=== PATIENT | male | born 1970 ===

== ENCOUNTER 2019-07-21 13:30 | Emergency (ER) | payer SELFPAY ==
--- NOTE | 2019-07-21 14:11 | Event Note ---
ED Screening Note Date of service: 07/21/19 Time: 14:12 ED Screening Note: 49 yo w/ HTN presents to ED w/ dizziness, nausea and vomiting. Pt reports sudden onset of dizziness while driving at 12 noon. Pt states he is unable to walk because he feels as if he will fall. Denies extremity weakness or numbness. Pt moving all extremities, no facial droop. Pt is nepali-speaking. Brother accompanying pt, translating for him. States pt's speech is clear, does not sound slurred. Pt hypertensive. BPV vs CVA. Stroke alert called. This initial assessment/diagnostic orders/clinical plan/treatment(s) is/are subject to change based on patients health status, clinical progression and re-assessment by fellow clinical providers in the ED. Further treatment and workup at subsequent clinical providers discretion. Patient/guardian urged not to elope from the ED as their condition may be serious if not clinically assessed and managed. Initial orders include: Stroke alert CT Head labs
[2019-07-21] MEDS ORDERED: ONDANSETRON 4 MG/2 ML INJ ONE (14:27)
[2019-07-21] MEDS ORDERED: ONDANSETRON 4 MG/2 ML INJ IV ONE ×2 (14:31→19:51)
[2019-07-21] MEDS ORDERED: MECLIZINE 25 MG TAB PO ONE (14:31)
--- NOTE | 2019-07-21 14:44 | Cat Scan Report ---
NONENHANCED CT SCAN OF THE BRAIN: INDICATION: MAIN: CODE STROKE dizziness, hypertensive #[id number]. TECHNIQUE: Routine CT head without contrast. Sagittal and coronal reformatted images were obtained. A ll CT scans at this location are performed using CT dose reduction for ALARA by means of automated ex posure control. COMPARISON: None. FINDINGS: BRAIN / INTRACRANIAL CONTENTS: Hemorrhage:No intracranial hemorrhage; no subarachnoid hemorrhage Stroke mimics: No subdural or epidural hematoma or space taking lesion Acute/subacute territorial infarction: Arias-white matter interface: No blurring; normal Insular cortex: Normal Basal ganglia: Normal Wedge shaped parenchymal low density area: Not present Cortical sulci: Not effaced Lacunar infarctions: Low attenuation areas seen in the right putamen. Though it is difficult to deter mine the age, this appears to be chronic. Vasculopathy: Generally increased CT density of the blood vessels seen symmetrically bilaterally in the internal ca rotid arteries, middle cerebral arteries and anterior cerebral arteries and basilar artery. I do not see findings to suggest vasculopathy. Calcified embolus: Not present ASPECT score: Not applicable Chronic lesions: Subcutaneous low attenuation areas are seen in the right collins radiata. Probably th kathryn are due to chronic microvascular angiopathic changes. Adjacent cortical sulci are normal. White matter: Craniocervical junction:No significant abnormality Orbits:No significant abnormality Paranasal sinuses/mastoids:No significant abnormality Additional findings: None IMPRESSION: No acute subacute infarction This exam was performed as part of a code stroke protocol. The exam was completed at [facility] on 07/21/2019 1:30 PM. The exam was reviewed at 1:35 PM Central standard time and ER m edical staff was notified at 1:39 PM Central standard time. Signer Name: Yamilka Galaviz MD Signed: 07/21/2019 2:40 PM Workstation Name: [id number]
[2019-07-21 14:48] LABS: Basophils # (Auto) 0.1 K/mm3 (0.0-0.1); Basophils % (Auto) 0.3 % (0.0-1.8); Eosinophils % (Auto) 0.2 % (0.0-4.3); Lymphocytes # (Auto) 1.6 K/mm3 (1.2-5.4); Lymphocytes % (Auto) 10.1 % (13.4-35.0); Mean Corpuscular HGB Conc 36 % (32-34); Mean Corpuscular Volume 81 fl (84-94); Monocytes # (Auto) 0.6 K/mm3 (0.0-0.8); Monocytes % (Auto) 3.9 % (0.0-7.3); Platelet Count 203 K/mm3 (140-440); Red Blood Count 5.43 M/mm3 (3.65-5.03); Red Cell Distribution Width 12.8 % (13.2-15.2)
[2019-07-21 14:50] LABS: Hematocrit 44.2 % (35.5-45.6); Hemoglobin 15.8 gm/dl (11.8-15.2)
[2019-07-21 14:59] LABS: INR 1.01 (0.87-1.13)
[2019-07-21 15:00] LABS: Partial Thromboplastin Time 23.8 Sec. (24.2-36.6); Thrombin Time 15.1 Sec. (15.1-19.6)
[2019-07-21 15:02] LABS: Creatine Kinase MB 2.5 ng/mL (0.0-4.0)
[2019-07-21 15:03] LABS: BUN/Creatinine Ratio 28; Blood Urea Nitrogen 17 mg/dL (9-20); Calcium 9.2 mg/dL (8.4-10.2); Hemolysis Index 13
[2019-07-21] MEDS ORDERED: SODIUM CHLORIDE 0.9% 1000 ML 1,000 ML IV ONE ×2 (15:07→17:30)
--- NOTE | 2019-07-21 15:19 | Emergency Department Report ---
ED Dizziness HPI - General Chief Complaint: Weakness Stated Complaint: VOMITING/NAUSEA Time Seen by Provider: 07/21/19 14:23 Source: patient Mode of arrival: Wheelchair Limitations: No Limitations - History of Present Illness Initial Comments: 49-year-old male with a past medical history hypertension and elevated cholesterol presents to the hospital complaining of sudden onset of dizziness while driving at noon. Patient describes it as a spinning sensation with associated nausea and vomiting. Patient prefers having his eyes closed because symptoms are worse with eyes open. He has difficulty walking because he felt like he is going to fall. He denies focal weakness, focal numbness, headache, neck pain, chest pain, or shortness of breath. Patient takes lovastatin, amlodipine, losartan, and hydrochlorothiazide has been compliant with his med ications. - Related Data Previous Rx's Medication Instructions Recorded Last Taken Type Meclizine [Antivert] 12.5 mg PO QID PRN #15 tablet 07/21/19 Unknown Rx Ondansetron [Zofran Odt] 4 mg PO Q8HR #12 tab.rapdis 07/21/19 Unknown Rx Prednisone [predniSONE (Sarah) ER 5 mg PO QDAY #5 tablet. 07/21/19 Unknown Rx TAB] Allergies Allergy/AdvReac Type Severity Reaction Status Date / Time No Known Allergies Allergy Verified 07/21/19 13:35 ED Review of Systems ROS: Stated complaint: VOMITING/NAUSEA Other details as noted in HPI Comment: All other systems reviewed and negative ED Past Medical Hx - Past Medical History Previous Medical History?: Yes Hx Hypertension: Yes - Surgical History Past Surgical History?: No - Social History Smoking Status: Never Smoker Substance Use Type: None - Medications Home Medications: Home Medications Medication Instructions Recorded Confirmed Last Taken Type Meclizine [Antivert] 12.5 mg PO QID PRN #15 tablet 07/21/19 Unknown Rx Ondansetron [Zofran Odt] 4 mg PO Q8HR #12 tab.rapdis 07/21/19 Unknown Rx Prednisone [predniSONE (Sarah) ER 5 mg PO QDAY #5 tablet. 07/21/19 Unknown Rx TAB] ED Physical Exam - General Limitations: No Limitations - Other Other exam information: General: No limitations, patient is alert in no acute distress Head exam: Atraumatic, normocephalic Eyes exam: Normal appearance, significant lateral nystagmus with right gaze, pupils equal and reactive to light ENT: Moist mucous membrane Neck exam: Normal inspection, full range of motion Respiratory exam: Clear to auscultation bilateral, no wheezes, rales, crackles Cardiovascular: Normal rate and rhythm Abdomen: Soft, nondistended, and nontender, with normal bowel sounds, no rebound, or guarding, Extremity: No deformity Back: Normal Inspection, no CVA tenderness Neurologic: Alert, oriented x3, speech clear, no gross motor or sensory deficit, [id number]-swal-ciffes function intact. NIH stroke scale of 0 as per neurologist exam Psychiatric: Normal mood, affect Skin: No rash ED Course Vital Signs 07/21/19 07/21/19 07/21/19 14:02 14:30 15:16 Temperature 97.3 F L Pulse Rate 69 85 Respiratory 16 20 16 Rate Blood Pressure 185/110 Blood Pressure 185/110 166/95 [Left] O2 Sat by Pulse 96 100 Oximetry 07/21/19 07/21/19 07/21/19 15:45 16:01 16:15 Temperature Pulse Rate 71 66 63 Respiratory 16 14 14 Rate Blood Pressure 138/87 148/93 149/97 Blood Pressure [Left] O2 Sat by Pulse 99 90 98 Oximetry 07/21/19 07/21/19 07/21/19 16:30 16:45 17:00 Temperature Pulse Rate 64 64 65 Respiratory 12 15 15 Rate Blood Pressure 152/97 145/94 147/99 Blood Pressure [Left] O2 Sat by Pulse 100 98 97 Oximetry 07/21/19 07/21/19 07/21/19 17:15 17:31 17:45 Temperature Pulse Rate 63 66 65 Respiratory 13 10 L 17 Rate Blood Pressure 155/103 158/98 158/97 Blood Pressure [Left] O2 Sat by Pulse 99 97 99 Oximetry 07/21/19 07/21/19 07/21/19 18:00 18:15 18:30 Temperature Pulse Rate 62 66 65 Respiratory 14 15 16 Rate Blood Pressure 160/97 149/99 141/97 Blood Pressure [Left] O2 Sat by Pulse 100 98 Oximetry 07/21/19 07/21/19 19:00 19:30 Temperature Pulse Rate 63 65 Respiratory 13 17 Rate Blood Pressure 158/96 159/97 Blood Pressure [Left] O2 Sat by Pulse 99 98 Oximetry - Reevaluation(s) Reevaluation #1: 07/21/19 19:51 Patient had persistent vertigo and inability to ambulate after meclizine 50 mg and 1 L of normal saline. Additional liter of normal saline and IV Valium 5 mg administered. At the Stanislaw also suggested Decadron. After evaluating the second liter NS and Valium we again attempted to ambulate patient. Gait is unsteady he walked a couple of feet then had episode of vomiting. Addition of Zofran ordered. Dr. Garcia notified for admission and will assess patient ED Medical Decision Making - Lab Data Result diagrams: 07/21/19 14:41 07/21/19 14:41 Lab Results 07/21/19 07/21/19 07/21/19 Range/Units 13:52 14:35 14:41 WBC 16.2 H (4.5-11.0) K/mm3 RBC 5.43 H (3.65-5.03) M/mm3 Hgb 15.8 H (11.8-15.2) gm/dl Hct 44.2 (35.5-45.6) % MCV 81 L (84-94) fl MCH 29 (28-32) pg MCHC 36 H (32-34) % RDW 12.8 L (13.2-15.2) % Plt Count 203 (140-440) K/mm3 Lymph % (Auto) 10.1 L (13.4-35.0) % [place] % (Auto) 3.9 (0.0-7.3) % Eos % (Auto) 0.2 (0.0-4.3) % Baso % (Auto) 0.3 (0.0-1.8) % Lymph # 1.6 (1.2-5.4) K/mm3 [place] # 0.6 (0.0-0.8) K/mm3 Eos # 0.0 (0.0-0.4) K/mm3 Baso # 0.1 (0.0-0.1) K/mm3 Seg Neutrophils % 85.5 H (40.0-70.0) % Seg Neutrophils # 13.9 H (1.8-7.7) K/mm3 PT (12.2-14.9) Sec. INR (0.87-1.13) APTT (24.2-36.6) Sec. Thrombin Time (15.1-19.6) Sec. Sodium (137-145) mmol/L Potassium (3.6-5.0) mmol/L Chloride (98-107) mmol/L Carbon Dioxide (22-30) mmol/L Anion Gap mmol/L BUN (9-20) mg/dL Creatinine (0.8-1.5) mg/dL Estimated GFR ml/min BUN/Creatinine Ratio % Glucose (75-100) mg/dL POC Glucose 165 H 157 H (70-105) Calcium (8.4-10.2) mg/dL Magnesium (1.7-2.3) mg/dL Total Creatine Kinase (55-170) units/L CK-MB (CK-2) (0.0-4.0) ng/mL CK-MB (CK-2) Rel Index (0-4) Troponin T (0.00-0.029) ng/mL Urine Color (Yellow) Urine Turbidity (Clear) Urine pH (5.0-7.0) Ur Specific [place] (1.003-1.030) Urine Protein (Negative) mg/dL Urine Glucose (UA) (Negative) mg/dL Urine Ketones (Negative) mg/dL Urine Blood (Negative) Urine Nitrite (Negative) Urine Bilirubin (Negative) Urine Urobilinogen (<2.0) mg/dL Ur Leukocyte Esterase (Negative) Urine WBC (Auto) (0.0-6.0) /HPF Urine RBC (Auto) (0.0-6.0) /HPF Urine Mucus /HPF Urine Opiates Screen Urine Methadone Screen Ur Barbiturates Screen Ur Phencyclidine Scrn Ur Amphetamines Screen U Benzodiazepines Scrn Urine Cocaine Screen U Marijuana (THC) Screen Drugs of Abuse Note 07/21/19 07/21/19 07/21/19 Range/Units 14:41 14:41 15:48 WBC (4.5-11.0) K/mm3 RBC (3.65-5.03) M/mm3 Hgb (11.8-15.2) gm/dl Hct (35.5-45.6) % MCV (84-94) fl MCH (28-32) pg MCHC (32-34) % RDW (13.2-15.2) % Plt Count (140-440) K/mm3 Lymph % (Auto) (13.4-35.0) % [place] % (Auto) (0.0-7.3) % Eos % (Auto) (0.0-4.3) % Baso % (Auto) (0.0-1.8) % Lymph # (1.2-5.4) K/mm3 [place] # (0.0-0.8) K/mm3 Eos # (0.0-0.4) K/mm3 Baso # (0.0-0.1) K/mm3 Seg Neutrophils % (40.0-70.0) % Seg Neutrophils # (1.8-7.7) K/mm3 PT 13.4 (12.2-14.9) Sec. INR 1.01 (0.87-1.13) APTT 23.8 L (24.2-36.6) Sec. Thrombin Time 15.1 (15.1-19.6) Sec. Sodium 136 L (137-145) mmol/L Potassium 3.4 L (3.6-5.0) mmol/L Chloride 96.9 L (98-107) mmol/L Carbon Dioxide 23 (22-30) mmol/L Anion Gap 20 mmol/L BUN 17 (9-20) mg/dL Creatinine 0.6 L (0.8-1.5) mg/dL Estimated GFR > 60 ml/min BUN/Creatinine Ratio 28 % Glucose 180 H (75-100) mg/dL POC Glucose (70-105) Calcium 9.2 (8.4-10.2) mg/dL Magnesium (1.7-2.3) mg/dL Total Creatine Kinase 167 (55-170) units/L CK-MB (CK-2) 2.5 (0.0-4.0) ng/mL CK-MB (CK-2) Rel Index 1.4 (0-4) Troponin T < 0.010 (0.00-0.029) ng/mL Urine Color Yellow (Yellow) Urine Turbidity Clear (Clear) Urine pH 7.0 (5.0-7.0) Ur Specific [place] 1.021 (1.003-1.030) Urine Protein <15 mg/dl (Negative) mg/dL Urine Glucose (UA) Neg (Negative) mg/dL Urine Ketones Tr (Negative) mg/dL Urine Blood Neg (Negative) Urine Nitrite Neg (Negative) Urine Bilirubin Neg (Negative) Urine Urobilinogen < 2.0 (<2.0) mg/dL Ur Leukocyte Esterase Neg (Negative) Urine WBC (Auto) < 1.0 (0.0-6.0) /HPF Urine RBC (Auto) < 1.0 (0.0-6.0) /HPF Urine Mucus Few /HPF Urine Opiates Screen Urine Methadone Screen Ur Barbiturates Screen Ur Phencyclidine Scrn Ur Amphetamines Screen U Benzodiazepines Scrn Urine Cocaine Screen U Marijuana (THC) Screen Drugs of Abuse Note 07/21/19 07/21/19 Range/Units 15:48 Unknown WBC (4.5-11.0) K/mm3 RBC (3.65-5.03) M/mm3 Hgb (11.8-15.2) gm/dl Hct (35.5-45.6) % MCV (84-94) fl MCH (28-32) pg MCHC (32-34) % RDW (13.2-15.2) % Plt Count (140-440) K/mm3 Lymph % (Auto) (13.4-35.0) % [place] % (Auto) (0.0-7.3) % Eos % (Auto) (0.0-4.3) % Baso % (Auto) (0.0-1.8) % Lymph # (1.2-5.4) K/mm3 [place] # (0.0-0.8) K/mm3 Eos # (0.0-0.4) K/mm3 Baso # (0.0-0.1) K/mm3 Seg Neutrophils % (40.0-70.0) % Seg Neutrophils # (1.8-7.7) K/mm3 PT (12.2-14.9) Sec. INR (0.87-1.13) APTT (24.2-36.6) Sec. Thrombin Time (15.1-19.6) Sec. Sodium (137-145) mmol/L Potassium (3.6-5.0) mmol/L Chloride (98-107) mmol/L Carbon Dioxide (22-30) mmol/L Anion Gap mmol/L BUN (9-20) mg/dL Creatinine (0.8-1.5) mg/dL Estimated GFR ml/min BUN/Creatinine Ratio % Glucose (75-100) mg/dL POC Glucose (70-105) Calcium (8.4-10.2) mg/dL Magnesium 2.30 (1.7-2.3) mg/dL Total Creatine Kinase (55-170) units/L CK-MB (CK-2) (0.0-4.0) ng/mL CK-MB (CK-2) Rel Index (0-4) Troponin T (0.00-0.029) ng/mL Urine Color (Yellow) Urine Turbidity (Clear) Urine pH (5.0-7.0) Ur Specific [place] (1.003-1.030) Urine Protein (Negative) mg/dL Urine Glucose (UA) (Negative) mg/dL Urine Ketones (Negative) mg/dL Urine Blood (Negative) Urine Nitrite (Negative) Urine Bilirubin (Negative) Urine Urobilinogen (<2.0) mg/dL Ur Leukocyte Esterase (Negative) Urine WBC (Auto) (0.0-6.0) /HPF Urine RBC (Auto) (0.0-6.0) /HPF Urine Mucus /HPF Urine Opiates Screen Presumptive negative Urine Methadone Screen Presumptive negative Ur Barbiturates Screen Presumptive negative Ur Phencyclidine Scrn Presumptive negative Ur Amphetamines Screen Presumptive negative U Benzodiazepines Scrn Presumptive negative Urine Cocaine Screen Presumptive negative U Marijuana (THC) Screen Presumptive negative Drugs of Abuse Note Disclamer - EKG Data -: EKG Interpreted by Tn EKG shows normal: sinus rhythm, ST-T waves (no setmi) Rate: normal (67) - Radiology Data Radiology results: report reviewed ct head: naf cta head: naf cta neck: naf - Medical Decision Making Dr Garcia evaluated patient and felt that his gait was steady enough to go home. He prescribed meds discharge instructions provided in Kazakh. Patient provided a copy of his results for outpatient follow-up up with his doctor. ENT referral also provided. - Differential Diagnosis peripheral vertigo, central vertigo colon, CVA, VBI Critical care attestation.: If time is entered above; I have spent that time in minutes in the direct care of this critically ill patient, excluding procedure time. ED Disposition Clinical Impression: Vertigo Disposition: DC-01 TO HOME OR SELFCARE Is pt being admited?: Yes Condition: Stable Instructions: Vertigo (ED) Additional Instructions: Take the medication as prescribed. Follow-up with your doctor or the doctor/clinic provided. Return if symptoms worsen as indicated by your discharge instructions. Take a copy of your results provided to your doctor for follow-up. [place] la medicacin segn lo prescrito. Hiram un seguimiento con andrews mdico o el mdico / clnica provisto. Regrese si los sntomas empeoran jigna lo indican parish instrucciones de jose. [place] oleg copia de los resultados proporcionados a andrews mdico para andrews seguimiento. Prescriptions: Meclizine [Antivert] 12.5 mg PO QID PRN #15 tablet PRN Reason: Vertigo Prednisone [predniSONE (Sarah) ER TAB] 5 mg PO QDAY #5 tablet. Ondansetron [Zofran Odt] 4 mg PO Q8HR #12 tab.rapdis Referrals: VIKRAM MUNOZ MD [Staff Physician] - 3-5 Days (Primary care doctor ) DANTE PAREKH MD [Staff Physician] - 3-5 Days (ENT doctor) ANAHY MAGANA MD [Staff Physician] - 3-5 Days (ENT doctor ) LOUIS RAYGOZA MD [Primary Care Provider] - 3-5 Days Time of Disposition: 19:52 Print Language: TRISTANIAN - Assessment Assessment Interval: Baseline - Level of Consciousness 1a. Level of Consciousness: alert/keenly responsive - LOC Questions 1b. LOC Questions: answers both correctly - LOC Command 1c. LOC Commands: performs tasks correctly - Best Gaze 2. Best Gaze: normal - Visual 3. Visual: no visual loss - Facial Palsy 4. Facial Palsy: normal symmetrical movement - Motor Arm 5a. Motor Arm Left: no drift 5b. Motor Arm Right: no drift - Motor Leg 6a. Motor Leg Left: no drift 6b. Motor Leg Right: no drift - Limb Ataxia 7. Limb Ataxia: absent - Sensory 8. Sensory: normal - Best Language 9. Best Language: no aphasia - Dysarthria 10. Dysarthria: normal - Extinction and Inattention 11. Extinction/Inattention: no abnormality - Scoring Total Score: 0 Stroke Severity: No Stroke Symptoms
[2019-07-21 16:07] LABS: Amphetamine Screen,Urine PRESUMPTIVE NEGATIVE; Benzodiazepines Screen,Urine PRESUMPTIVE NEGATIVE; Cannabinoid Screen,Urine PRESUMPTIVE NEGATIVE; Cocaine Screen,Urine PRESUMPTIVE NEGATIVE; Methadone Screen,Urine PRESUMPTIVE NEGATIVE; Opiate Screen,Urine PRESUMPTIVE NEGATIVE
[2019-07-21 16:17] LABS: Bilirubin,Urine NEG (Negative); Blood,Urine NEG (Negative); Color,Urine Yellow (Yellow); Mucus,Urine FEW /HPF; Protein,Urine <15 mg/dL mg/dL (Negative); RBC,Urine < 1.0 /HPF (0.0-6.0); Urobilinogen,Urine < 2.0 mg/dL (<2.0); WBC,Urine < 1.0 /HPF (0.0-6.0)
[2019-07-21] MEDS ORDERED: POTASSIUM CHLORIDE ER 20 MEQ TAB PO ONE ×2 (16:18→20:45)
--- NOTE | 2019-07-21 16:20 | Cat Scan Report ---
CTA NECK WITH CONTRAST HISTORY: "Stroke COMPARISON: None. TECHNIQUE: Routine CTA of the neck was performed. 3-D/MIP reformats were postprocessed. Percentage s tenosis is determined by direct quantitative measurements of diseased internal carotid artery diamete r compared with normal distal internal carotid artery reference segments or by criteria similar to NA SCET where applicable.All CT scans at this location are performed using CT dose reduction for ALARA b y means of automated exposure control CONTRAST: 100 ml of Omnipaque 350 FINDINGS: Aortic arch: No significant abnormality. Cervical vertebral arteries: No significant abnormality. Common carotid arteries: No significant abnormality. Carotid bifurcations: Normal Cervical internal carotid arteries: No significant abnormality. Additional findings: None. IMPRESSION: 1. Normal CTA of the neck Signer Name: Yamilka Galaviz MD Signed: 07/21/2019 4:15 PM Workstation Name: [id number]
--- NOTE | 2019-07-21 16:23 | Cat Scan Report ---
CTA HEAD WITH CONTRAST HISTORY: Stroke COMPARISON: None. TECHNIQUE: Routine non-contrast CT Head, CTA of the head and post-contrast CT Head are performed. 3-D /MIP reformats postprocessed. All CT scans at this location are performed using CT dose reduction for ALARA by means of automated exposure control CONTRAST: 100 ml of Omnipaque 350 FINDINGS: CTA Head: Intracranial vertebral arteries: No significant abnormality. Basilar artery: No significant abnormality. Posterior cerebral arteries: No significant abnormality. Intracranial internal carotid arteries: No significant abnormality. Anterior cerebral arteries: No significant abnormality. Middle cerebral arteries: No significant abnormality. Dural venous sinuses:Not optimally opacified. No significant abnormality. Additional findings: None. IMPRESSION: 1. Normal CTA of the brain. Signer Name: Yamilka Galaviz MD Signed: 07/21/2019 4:18 PM Workstation Name: [id number]
[2019-07-21] MEDS ORDERED: dexAMETHasone 4 MG/ML VIAL IV ONE (17:31)
[2019-07-21] MEDS ORDERED: diazePAM 10 MG/2 ML SYRINGE IV ONE (18:00)
--- NOTE | 2019-07-21 18:46 | Emergency Department Report ---
ED Neuro Deficit HPI - General Chief Complaint: Weakness Stated Complaint: VOMITING/NAUSEA Time Seen by Provider: 07/21/19 14:23 Source: patient Mode of arrival: Wheelchair Limitations: No Limitations - History of Present Illness Initial Comments: [facility] Date of Service: 07/21/2019 14:12:02 Impression: Vertigo Comments: Patient is a 49 years old man who presents to the ED with acute onset vertigo an d nausea. NIHSS is 0 although there may be nystagmus. Non contrast CTH showed no acute abnormalities. Presentation is more consistent with vertigo, probably peripheral etiology. Will get CTA head and neck for further evaluation. Metrics: Last Known Well: 07/21/2019 12:00:00 [facility] Notification Time: 07/21/2019 14:10:20 Arrival Time: 07/21/2019 13:30:00 Stamp Time: 07/21/2019 14:12:02 Time First Login Attempt: 07/21/2019 14:15:00 Video Start Time: 07/21/2019 14:15:00 Symptoms: Dizziness NIHSS Start Assessment Time: 07/21/2019 14:17:40 Patient is not a candidate for tPA. Patient was not deemed candidate for tPA thrombolytics because of Resolved symptoms. Video End Time: 07/21/2019 14:33:45 CT head showed no acute hemorrhage or acute core infarct. Presentation is not suggestive of Large Vessel Occlusive disease. Advanced imaging was reviewed, No Indication of Large Vessel Occlusive Thrombus. Advanced imaging CTA head and neck obtained. ED Physician notified of diagnostic impression and management plan on 07/21/2019 14:27:33 Our recommendations are outlined below. Recommendations: Activate Stroke Protocol Admission/Order Set Stroke/Telemetry Floor Neuro Checks Bedside Swallow Eval DVT Prophylaxis IV Fluids, Normal Saline Head of Bed Below 30 Degrees Euglycemia and Avoid Hyperthermia (PRN Acetaminophen) Antiplatelet Therapy Recommended Recommended Scan: MRI Head Without Contrast Lipid Panel to Be Obtained, if Not Done in the Last Three Months Therapies: Physical Therapy Dysphaghia Screen: Swallow Evaluation, Bedside Disposition: Follow up with Teleneurology Follow up Sign Out: Discussed with Emergency Department Provider History of Present Illness: Patient is a 49 year old Male. Patient was brought by EMS for symptoms of Dizziness Patient is a 49 years old man with history of HTN and HLD who presents to the ED c/o sudden onset vertigo and nausea that started at around noon. Symptoms have remained constant since onset. He has no other associated symptoms as weakness, numbness, or slurred speech. Dizziness gets worse with movement and when he opens his eyes. No prior history of stroke. CT head showed no acute hemorrhage or acute core infarct. Last seen normal was within 4.5 hours. There is no history of hemorrhagic complications or intracranial hemorrhage. There is no history of Recent Anticoagulants. There is no history of recent major surgery. There is no history of recent stroke. Examination: BP(166/96), 1A: Level of Consciousness - Alert; keenly responsive + 0 1B: Ask Month and Age - Both Questions Right + 0 1C: Blink Eyes & Squeeze Hands - Performs Both Tasks + 0 2: Test Horizontal Extraocular Movements - Normal + 0 3: Test Visual [place] - No Visual Loss + 0 4: Test Facial Palsy (Use Grimace if Obtunded) - Normal symmetry + 0 5A: Test Left Arm Motor Drift - No Drift for 10 Seconds + 0 5B: Test Right Arm Motor Drift - No Drift for 10 Seconds + 0 6A: Test Left Leg Motor Drift - No Drift for 5 Seconds + 0 6B: Test Right Leg Motor Drift - No Drift for 5 Seconds + 0 7: Test Limb Ataxia (FNF/Heel-Ewing) - No Ataxia + 0 8: Test Sensation - Normal; No sensory loss + 0 9: Test Language/Aphasia - Normal; No aphasia + 0 10: Test Dysarthria - Normal + 0 11: Test Extinction/Inattention - No abnormality + 0 NIHSS Score: 0 Patient was informed the Neurology Consult would happen via TeleHealth consult by way of interactive audio and video telecommunications and consented to receiving care in this manner. Due to the immediate potential for life-threatening deterioration due to underlying acute neurologic illness, I spent 35 minutes providing critical care. This time includes time for face to face visit via telemedicine, review of medical records, imaging studies and discussion of findings with providers, the patient and/or family. Dr Nikole Diaz [facility] Case [id number] - Related Data Allergies/Adverse Reactions: Allergies Allergy/AdvReac Type Severity Reaction Status Date / Time No Known Allergies Allergy Verified 07/21/19 13:35 ED Review of Systems ROS: Stated complaint: VOMITING/NAUSEA Other details as noted in HPI ED Past Medical Hx - Past Medical History Previous Medical History?: Yes Hx Hypertension: Yes - Surgical History Past Surgical History?: No - Social History Smoking Status: Never Smoker Substance Use Type: None ED Neuro Physical Exam - General Limitations: No Limitations Suspected Stroke: No ED Course Vital Signs 07/21/19 07/21/19 07/21/19 14:02 14:30 15:16 Temperature 97.3 F L Pulse Rate 69 85 Respiratory 16 20 16 Rate Blood Pressure 185/110 Blood Pressure 185/110 166/95 [Left] O2 Sat by Pulse 96 100 Oximetry 07/21/19 07/21/19 07/21/19 15:45 16:01 16:15 Temperature Pulse Rate 71 66 63 Respiratory 16 14 14 Rate Blood Pressure 138/87 148/93 149/97 Blood Pressure [Left] O2 Sat by Pulse 99 90 98 Oximetry 07/21/19 07/21/19 07/21/19 16:30 16:45 17:00 Temperature Pulse Rate 64 64 65 Respiratory 12 15 15 Rate Blood Pressure 152/97 145/94 147/99 Blood Pressure [Left] O2 Sat by Pulse 100 98 97 Oximetry 07/21/19 07/21/19 07/21/19 17:15 17:31 17:45 Temperature Pulse Rate 63 66 65 Respiratory 13 10 L 17 Rate Blood Pressure 155/103 158/98 158/97 Blood Pressure [Left] O2 Sat by Pulse 99 97 99 Oximetry 07/21/19 07/21/19 07/21/19 18:00 18:15 18:30 Temperature Pulse Rate 62 66 65 Respiratory 14 15 16 Rate Blood Pressure 160/97 149/99 141/97 Blood Pressure [Left] O2 Sat by Pulse 100 98 Oximetry - Lab Data Result diagrams: 07/21/19 14:41 07/21/19 14:41 Lab Results 07/21/19 07/21/19 07/21/19 Range/Units 13:52 14:35 14:41 WBC 16.2 H (4.5-11.0) K/mm3 RBC 5.43 H (3.65-5.03) M/mm3 Hgb 15.8 H (11.8-15.2) gm/dl Hct 44.2 (35.5-45.6) % MCV 81 L (84-94) fl MCH 29 (28-32) pg MCHC 36 H (32-34) % RDW 12.8 L (13.2-15.2) % Plt Count 203 (140-440) K/mm3 Lymph % (Auto) 10.1 L (13.4-35.0) % [place] % (Auto) 3.9 (0.0-7.3) % Eos % (Auto) 0.2 (0.0-4.3) % Baso % (Auto) 0.3 (0.0-1.8) % Lymph # 1.6 (1.2-5.4) K/mm3 [place] # 0.6 (0.0-0.8) K/mm3 Eos # 0.0 (0.0-0.4) K/mm3 Baso # 0.1 (0.0-0.1) K/mm3 Seg Neutrophils % 85.5 H (40.0-70.0) % Seg Neutrophils # 13.9 H (1.8-7.7) K/mm3 PT (12.2-14.9) Sec. INR (0.87-1.13) APTT (24.2-36.6) Sec. Thrombin Time (15.1-19.6) Sec. Sodium (137-145) mmol/L Potassium (3.6-5.0) mmol/L Chloride (98-107) mmol/L Carbon Dioxide (22-30) mmol/L Anion Gap mmol/L BUN (9-20) mg/dL Creatinine (0.8-1.5) mg/dL Estimated GFR ml/min BUN/Creatinine Ratio % Glucose (75-100) mg/dL POC Glucose 165 H 157 H (70-105) Calcium (8.4-10.2) mg/dL Magnesium (1.7-2.3) mg/dL Total Creatine Kinase (55-170) units/L CK-MB (CK-2) (0.0-4.0) ng/mL CK-MB (CK-2) Rel Index (0-4) Troponin T (0.00-0.029) ng/mL Urine Color (Yellow) Urine Turbidity (Clear) Urine pH (5.0-7.0) Ur Specific [place] (1.003-1.030) Urine Protein (Negative) mg/dL Urine Glucose (UA) (Negative) mg/dL Urine Ketones (Negative) mg/dL Urine Blood (Negative) Urine Nitrite (Negative) Urine Bilirubin (Negative) Urine Urobilinogen (<2.0) mg/dL Ur Leukocyte Esterase (Negative) Urine WBC (Auto) (0.0-6.0) /HPF Urine RBC (Auto) (0.0-6.0) /HPF Urine Mucus /HPF Urine Opiates Screen Urine Methadone Screen Ur Barbiturates Screen Ur Phencyclidine Scrn Ur Amphetamines Screen U Benzodiazepines Scrn Urine Cocaine Screen U Marijuana (THC) Screen Drugs of Abuse Note 07/21/19 07/21/19 07/21/19 Range/Units 14:41 14:41 15:48 WBC (4.5-11.0) K/mm3 RBC (3.65-5.03) M/mm3 Hgb (11.8-15.2) gm/dl Hct (35.5-45.6) % MCV (84-94) fl MCH (28-32) pg MCHC (32-34) % RDW (13.2-15.2) % Plt Count (140-440) K/mm3 Lymph % (Auto) (13.4-35.0) % [place] % (Auto) (0.0-7.3) % Eos % (Auto) (0.0-4.3) % Baso % (Auto) (0.0-1.8) % Lymph # (1.2-5.4) K/mm3 [place] # (0.0-0.8) K/mm3 Eos # (0.0-0.4) K/mm3 Baso # (0.0-0.1) K/mm3 Seg Neutrophils % (40.0-70.0) % Seg Neutrophils # (1.8-7.7) K/mm3 PT 13.4 (12.2-14.9) Sec. INR 1.01 (0.87-1.13) APTT 23.8 L (24.2-36.6) Sec. Thrombin Time 15.1 (15.1-19.6) Sec. Sodium 136 L (137-145) mmol/L Potassium 3.4 L (3.6-5.0) mmol/L Chloride 96.9 L (98-107) mmol/L Carbon Dioxide 23 (22-30) mmol/L Anion Gap 20 mmol/L BUN 17 (9-20) mg/dL Creatinine 0.6 L (0.8-1.5) mg/dL Estimated GFR > 60 ml/min BUN/Creatinine Ratio 28 % Glucose 180 H (75-100) mg/dL POC Glucose (70-105) Calcium 9.2 (8.4-10.2) mg/dL Magnesium (1.7-2.3) mg/dL Total Creatine Kinase 167 (55-170) units/L CK-MB (CK-2) 2.5 (0.0-4.0) ng/mL CK-MB (CK-2) Rel Index 1.4 (0-4) Troponin T < 0.010 (0.00-0.029) ng/mL Urine Color Yellow (Yellow) Urine Turbidity Clear (Clear) Urine pH 7.0 (5.0-7.0) Ur Specific [place] 1.021 (1.003-1.030) Urine Protein <15 mg/dl (Negative) mg/dL Urine Glucose (UA) Neg (Negative) mg/dL Urine Ketones Tr (Negative) mg/dL Urine Blood Neg (Negative) Urine Nitrite Neg (Negative) Urine Bilirubin Neg (Negative) Urine Urobilinogen < 2.0 (<2.0) mg/dL Ur Leukocyte Esterase Neg (Negative) Urine WBC (Auto) < 1.0 (0.0-6.0) /HPF Urine RBC (Auto) < 1.0 (0.0-6.0) /HPF Urine Mucus Few /HPF Urine Opiates Screen Urine Methadone Screen Ur Barbiturates Screen Ur Phencyclidine Scrn Ur Amphetamines Screen U Benzodiazepines Scrn Urine Cocaine Screen U Marijuana (THC) Screen Drugs of Abuse Note 07/21/19 07/21/19 Range/Units 15:48 Unknown WBC (4.5-11.0) K/mm3 RBC (3.65-5.03) M/mm3 Hgb (11.8-15.2) gm/dl Hct (35.5-45.6) % MCV (84-94) fl MCH (28-32) pg MCHC (32-34) % RDW (13.2-15.2) % Plt Count (140-440) K/mm3 Lymph % (Auto) (13.4-35.0) % [place] % (Auto) (0.0-7.3) % Eos % (Auto) (0.0-4.3) % Baso % (Auto) (0.0-1.8) % Lymph # (1.2-5.4) K/mm3 [place] # (0.0-0.8) K/mm3 Eos # (0.0-0.4) K/mm3 Baso # (0.0-0.1) K/mm3 Seg Neutrophils % (40.0-70.0) % Seg Neutrophils # (1.8-7.7) K/mm3 PT (12.2-14.9) Sec. INR (0.87-1.13) APTT (24.2-36.6) Sec. Thrombin Time (15.1-19.6) Sec. Sodium (137-145) mmol/L Potassium (3.6-5.0) mmol/L Chloride (98-107) mmol/L Carbon Dioxide (22-30) mmol/L Anion Gap mmol/L BUN (9-20) mg/dL Creatinine (0.8-1.5) mg/dL Estimated GFR ml/min BUN/Creatinine Ratio % Glucose (75-100) mg/dL POC Glucose (70-105) Calcium (8.4-10.2) mg/dL Magnesium 2.30 (1.7-2.3) mg/dL Total Creatine Kinase (55-170) units/L CK-MB (CK-2) (0.0-4.0) ng/mL CK-MB (CK-2) Rel Index (0-4) Troponin T (0.00-0.029) ng/mL Urine Color (Yellow) Urine Turbidity (Clear) Urine pH (5.0-7.0) Ur Specific [place] (1.003-1.030) Urine Protein (Negative) mg/dL Urine Glucose (UA) (Negative) mg/dL Urine Ketones (Negative) mg/dL Urine Blood (Negative) Urine Nitrite (Negative) Urine Bilirubin (Negative) Urine Urobilinogen (<2.0) mg/dL Ur Leukocyte Esterase (Negative) Urine WBC (Auto) (0.0-6.0) /HPF Urine RBC (Auto) (0.0-6.0) /HPF Urine Mucus /HPF Urine Opiates Screen Presumptive negative Urine Methadone Screen Presumptive negative Ur Barbiturates Screen Presumptive negative Ur Phencyclidine Scrn Presumptive negative Ur Amphetamines Screen Presumptive negative U Benzodiazepines Scrn Presumptive negative Urine Cocaine Screen Presumptive negative U Marijuana (THC) Screen Presumptive negative Drugs of Abuse Note Disclamer Critical care attestation.: If time is entered above; I have spent that time in minutes in the direct care of this critically ill patient, excluding procedure time. ED Disposition Clinical Impression: Vertigo Disposition: [id number] OP ADMIT IP TO THIS HOSP Is pt being admited?: Yes Condition: Stable Referrals: PRIMARY CARE, [Primary Care Provider] - 3-5 Days
--- NOTE | 2019-07-21 20:36 | Event Note ---
Date: 07/21/19 49-year-old male with a past medical history hypertension and elevated cholesterol presents to the hospital complaining of sudden onset of dizziness while driving at noon. Patient describes it as a spinning sensation with associated nausea and vomiting. Patient prefers having his eyes closed because symptoms are worse with eyes open. He has difficulty walking because he felt like he is going to fall. He denies focal weakness, focal numbness, headache, neck pain, chest pain, or shortness of breath. Patient takes lovastatin, amlodipine, losartan, and hydrochlorothiazide has been compliant with his medications. Telemetry neurology has evaluated and their impression is patient has vertigo I have evaluated around 8:30 PM Patient able to walk --slightly unsteady but not ataxic Power is 5/5 in all 4 extremities No nystagmus Discharge diagnosis Acute labyrinthitis Discharged home on meclizine and Zofran Follow-up with PCP on Tuesday Any worsening of condition return to the emergency room
[2019-07-21 21:29] VITALS: BP 145/92
== END 2019-07-21 21:20 | disposition home or self-care (01) ==
LOC: ED 13:30
DX: R42 Dizziness and giddiness (principal); R11.2 Nausea with vomiting, unspecified; Z79.899 Other long term (current) drug therapy
CPT/HCPCS: 36415; 70450; 70496; 70498; 80048; 80307; 81001; 82550; 82553; 82962; 83735; 84484; 85025; 85610; 85670; 85730; 93005; 93010; 96361; 96374; 96375; 96376; 99285; J1100; J2405; J3360; J7030; Q9967